=== PATIENT | male | born 1980 ===

== ENCOUNTER → 2021-01-18 | Outpatient (CLI) | payer OTHER ==
--- NOTE | 2021-01-19 08:43 | RAD ---
US TESTICULAR History: Reason: RT SCROTAL LUMP FELT X2 MONTHS, UNCHANGED IN SIZE / Spl. Instructions: PT STATES HE HAD A VASECTOMY IN DECEMBER 2019 / History: Comparison: None. Technique: Multiple grayscale, color flow Doppler and Doppler spectral analysis images of the scrotum are obtained. Findings: Right testicle measures 4.8 x 3.4 x 2.1 cm. Right testicle demonstrates normal parenchymal echogenic ity. Right epididymis is unremarkable. Left testicle measures 4.2 x 3.1 x 2.2 cm. Left testicle demonstrates normal parenchymal echogenici ty. Left epididymis is unremarkable. There is no hydrocele or varicocele. No scrotal hyperemia or swelling. Doppler imaging demonstrates normal flow to both testicles, without evidence of torsion. Hypoechoic lesion within the right lateral scrotum measures 0.9 x 0.8 x 0.7 cm. No internal Doppler f low. IMPRESSION: 1. Hypoechoic lesion within the right lateral scrotum corresponds with patient's palpable concern. R ecommend correlation for proximity to region of recent postoperative changes as may represent postope rative collection such as hematoma. Recommend short-term ultrasound follow-up. Electronically signed by: Isaac Lockwood DO (01/19/2021 8:41 AM) [id number]
== END ==
LOC: US 14:24
PROVIDERS: ATTEND Family Medicine
DX: N50.89 Other specified disorders of the male genital organs (principal)
CPT/HCPCS: 76870